=== PATIENT | female | born 1985 | race Caucasian/White ===

== ENCOUNTER → 2018-10-01 | Outpatient (CLI) | payer BC ==
[2018-10-01 18:08] LABS: ADD MAN DIFF? NO
[2018-10-01 18:09] LABS: WHITE BLOOD COUNT 7.1 10^3/ul (4.8-10.8)
[2018-10-01 18:09] LABS: BASOPHILS % 0.4 % (0.0-2.0); EOSINOPHILS % 0.4 % (0.0-7.0); HEMATOCRIT 38.4 % (37.0-47.0); HEMOGLOBIN 12.8 g/dl (12.0-16.0); LYMPHOCYTES # 2.1 10^3/ul (0.8-2.9); LYMPHOCYTES % 29.6 % (15.0-51.0); MEAN CORPUSCULAR HEMOGLOBIN 29.7 pg (29.0-33.0); MEAN CORPUSCULAR HGB CONC 33.3 g/dl (32.0-37.0); MEAN CORPUSCULAR VOLUME 89.1 fl (82.0-101.0); MEAN PLATELET VOLUME 9.6 fl (7.4-10.4); MONOCYTE # 0.5 10^3/ul (0.3-0.9); MONOCYTES % 7.6 % (0.0-11.0); NEUTROPHIL # 4.4 10^3/ul (1.6-7.5); NEUTROPHILS % 61.9 % (39.0-77.0); PLATELET COUNT 343 10^3/UL (140-415); RED BLOOD COUNT 4.31 10^6/ul (4.20-5.40); RED CELL DISTRIBUTION WIDTH 12.4 % (11.5-14.5)
[2018-10-01 18:27] LABS: HEMOGLOBIN A1C 4.9 % (0-5.9)
[2018-10-01 18:43] LABS: ANION GAP 12 (5-13); BLOOD UREA NITROGEN 14 mg/dl (7-20); CALCIUM 9.4 mg/dl (8.4-10.2); CARBON DIOXIDE 26 mmol/L (21-31); CHLORIDE 104 mmol/L (97-110); CREATININE 0.54 mg/dl (0.44-1.00); Estimated GFR > 60 mL/min (>60); GLUCOSE 88 mg/dl (70-220); SODIUM 142 mmol/L (135-144)
== END | disposition home or self-care (01) ==
LOC: LAB 17:18
DX: S82.001D Unspecified fracture of right patella, subsequent encounter for closed fracture with routine healing (principal); X58.XXXD Exposure to other specified factors, subsequent encounter; R73.03 Prediabetes; D64.9 Anemia, unspecified
CPT/HCPCS: 73562; 80048; 83036; 85025

== ENCOUNTER → 2018-11-30 | Outpatient (CLI) | payer BC ==
[2018-12-01 16:22] LABS: PROLACTIN 7.8 ng/mL
== END | disposition home or self-care (01) ==
LOC: LAB 15:39
DX: E34.9 Endocrine disorder, unspecified (principal)
CPT/HCPCS: 83001; 84146

== ENCOUNTER → 2018-12-24 | Outpatient (CLI) | payer BC ==
[2018-12-25 14:57] LABS: PROGESTERONE 4.5 ng/mL
== END | disposition home or self-care (01) ==
LOC: LAB 14:32
DX: E34.9 Endocrine disorder, unspecified (principal)
CPT/HCPCS: 84144